=== PATIENT | male | born 1990 | race Caucasian/White ===

== ENCOUNTER 2023-01-27 10:32 | Outpatient (REF) | payer OTHER, SELFPAY ==
--- NOTE | ~2023-01-27 | XR_ITS ---
EXAMINATION: XR SHOULDER, RIGHT CLINICAL INFORMATION: Pain in the right shoulder COMPARISON: None TECHNIQUE: Three views of the right shoulder. FINDINGS: No fracture or dislocation. The glenohumeral joint is well aligned. The acromioclavicular joint is intact. The visualized lung is clear. The visualized ribs are intact. XR/XR shoulder RT min 2V IMPRESSION: Normal right shoulder.
== END 2023-01-27 10:33 | disposition home or self-care (01) ==
LOC: HO.HMGCX 10:32
PROVIDERS: Visit Provider Physician Assistant
DX: M25.511 Pain in right shoulder (principal)
CPT/HCPCS: 73030

== ENCOUNTER → 2023-03-31 13:55 | Outpatient (BNVA) | payer OTHER, SELFPAY | PROVIDERS: Visit Provider Physician Assistant | DX: M75.101 Unspecified rotator cuff tear or rupture of right shoulder, not specified as traumatic (principal) | CPT/HCPCS: 20610; J1040 ==

== ENCOUNTER → 2023-05-16 09:00 | Outpatient (BNVA) | payer OTHER, SELFPAY | PROVIDERS: Visit Provider Physician Assistant ==

== ENCOUNTER 2023-11-04 08:54 | Outpatient (AMB) | payer OTHER, SELFPAY ==
[2023-11-04 09:51] VITALS: BP 120/80; PULSE 83; TEMP 36.2; O2SAT 97; BMI 31.6
--- NOTE | 2023-11-04 09:51 | MHC.OFFWIV ---
Intake Vital Signs 11/04/23 09:51 Height 5 ft 7 in Weight 202 lb BMI 31.6 BP 120/80 Blood Pressure Location Rt brachial Position Sitting Pulse 83 Pulse Source Pulse Oximeter Temp 97.1 F Temp Source Temporal Artery Scan Pulse Oximetry (%) 97 Oxygen Delivery Method Room Air Intake Visit Reasons: Ep, right shoulder pain Intake Note: pt is here today for rt shoulder pain started 1 year ago Patient Tobacco Use Status: Current everyday Tobacco user Allergies No Known Allergies Allergy (Verified 11/04/23 09:52) Do you need a note to return to daycare/school/sports/work: Yes HPI HPI Comments History of Present Illness Details This is a left-hand dominant 33-year-old male currently serving in the [employer] presenting for re-evaluation of right shoulder pain that he has had over the past 1 year. Patient was seen by Orthopedics in [place] last year and had a cortisone injection in March 2023 which he states was very helpful until it ?wore off? in approximately August 2023. Patient also had normal plain film imaging of his right shoulder and January 2023. Patient denies any overt injury or trauma to his right shoulder 1 year ago. The patient did not complete a course of physical therapy as previously recommended by Orthopedics. Patient is requesting a referral back to Orthopedics for a repeat cortisone injection. Patient has been taking 400 mg of ibuprofen twice daily over the past 6-7 days with minimal relief is discomfort. Patient states that it is a 7/10 throbbing sensation inside his right shoulder that is worse when he tries to lift his right arm. [facility] Social History (Updated 05/16/23 @ 09:02 by Funmilayo Bonilla Oz) Alcohol intake: current Patient Tobacco Use Status: Current everyday Tobacco user Current occupational status: employed Current occupation: left hand dominant Review of Systems Const All systems reviewed & are unremarkable except as noted in HPI and below Musc Reports no additional complaints, Reports limited range of motion (right shoulder) and Denies radiating pain into limb Skin/Breast Reports system reviewed and no additional complaints, except as documented Neuro Reports no additional complaints Physical Exam Vital Signs: Last Vital Signs Temp 97.1 F 11/04/23 09:51 Pulse 83 11/04/23 09:51 BP 120/80 11/04/23 09:51 Pulse Ox 97 11/04/23 09:51 Oxygen Delivery Method Room Air 11/04/23 09:51 BMI result Body Mass Index 31.6 Const General: cooperative, healthy appearing, comfortable and no acute distress; No ill appearing Nutritional Appearance: average body habitus Orientation/consciousness: patient oriented x3 Limitations: no limitations Neck Neck: Yes full ROM Back/Spine/Pelvis Cervical Spine: normal cervical lordosis, cervical ROM normal, No cervical muscular tenderness and No Cervical spine tenderness Skin General skin exam: no rashes or lesions noted Neuro General: patient oriented x3 Motor exam (neuro): Abnormal motor strength present (RUE) Extrem General: Yes normal to inspection Right upper extremity: normal to inspection and Extremity exam: right hand (esthetician spa strength equal bilaterally); ROM limited (limited ROM with shoulder abduction; pain with abduction against resistance) Psych Appearance: grossly normal Mental Status: mental status grossly normal Insight: Good insight present (Psych) Judgement: Good judgement present (Psych) Assessment & Plan Assessment & Plan (1) Tendinopathy of right shoulder: Code(s): M67.911 - Unspecified disorder of synovium and tendon, right shoulder Plan: Naprosyn 500mg BID x 7 -10 days. Orthopedic referral placed. Orders: Referrals Orthopedics Referral M75.101 - Unspecified rotator cuff tear or rupture of right shoulder, not specified as traumatic Medications: New naproxen (Naprosyn) 500 mg PO BID 20 tabs 0RF Coding Level of Care Code Est Pt Level 3 (52282) Diagnoses Tendinopathy of right shoulder M67.911 Time Spent (min) 20
== END 2023-11-04 10:30 | disposition home or self-care (01) ==
PROVIDERS: Visit Provider Physician Assistant
DX: M67.911 Unspecified disorder of synovium and tendon, right shoulder (principal)
CPT/HCPCS: 99213

== ENCOUNTER 2023-11-04 10:44 | Outpatient (AMB) | payer OTHER, SELFPAY ==
--- NOTE | 2023-11-04 10:53 | A.OFFVIS_ITS ---
Intake Intake Visit Reasons: OV- Rt Shoulder INJ 03/31/23 Intake Note: Prabhjot is a 33 year old male who presents today for a repeat injection. His last injection was on 03/31/23 which gave him relief. Allergies No Known Allergies Allergy (Verified 11/04/23 10:54) HPI OV- Rt Shoulder INJ 03/31/23 HPI Details 33-year-old left hand dominant male who presents in the office today for a follow up right shoulder pain. The patient had a cortisone injection in the right shoulder on 03/31/2023, which he states gave him relief. I last saw the patient in the office on 05/16/2023 where he was referred to physical therapy to work on ROM and strengthening. The patient was seen early today, 11/04/2023 [facility] Where he reported he was seen by Orthopedics in [place] last year and had a cortisone injection in March 2023 which he states was very helpful until it ?wore off? in approximately August 2023. The patient did not complete a course of physical therapy as previously recommended by Orthopedics. Patient has been taking 400 mg of ibuprofen twice daily over the past 6-7 days with minimal relief is discomfort. Patient states that it is a 7/10 throbbing sensation inside his right shoulder that is worse when he tries to lift his right arm, per the clinic note. The patient was prescribed Naproxen 500 mg PO BID and referred to orthopedics. Patient is currently serving in the [employer]. [facility] Social History Alcohol intake: current Patient Tobacco Use Status: Current everyday Tobacco user Current occupational status: employed Current occupation: left hand dominant Review of Systems Const All systems reviewed & are unremarkable except as noted in HPI and below Physical Exam Const General: cooperative, healthy appearing and no acute distress Resp Effort & Inspection: normal respiratory effort and able to speak in complete sentences Cardio Rate: regular rate Peripheral pulses: Peripheral pulses 2+ throughout GI Palpation (GI): Soft to palpation Skin Lesions: no lesions Rashes: no rashes Extrem Other: Right shoulder: Full shoulder ROM in all planes. Positive cross-body reach. 4/5 strength with empty can. Negative drop arm. Pain along the impingement arc. No tenderness to palpation at the bicep tendon insertion. NVI. Office Procedures Joint Injection/Drain Joint Injection/Drain Primary Site: right shoulder Prep: site was prepped using aseptic technique, ethochloride spray was applied and injection warnings given Injected: 80 mg of, DepoMedrol and with 8 mL of (2% plain lido ) Approach Used: posterolateral Procedure: The patient tolerated the procedure well, but had some pain with the injection and there was some relief with the local anesthesia Coding 06128 - Large joint Procedure code (CPT) selection complete Assessment & Plan Assessment & Plan (1) Painful arc syndrome of right shoulder: Code(s): M75.101 - Unspecified rotator cuff tear or rupture of right shoulder, not specified as traumatic Plan Mr. Payan is a 33-year-old left hand dominant male who presents in the office today for a follow up right shoulder pain. The patient had a cortisone injection in the right shoulder on 03/31/2023, which he states gave him relief. I last saw the patient in the office on 05/16/2023 where he was referred to physical therapy to work on ROM and strengthening. The patient was seen early today, 11/04/2023 at [facility]. Where he reported he was seen by Orthopedics in [place] last year and had a cortisone injection in March 2023 which he states was very helpful until it ?wore off? in approximately August 2023. The patient did not complete a course of physical therapy as previously recommended by Orthopedics. Patient has been taking 400 mg of ibuprofen twice daily over the past 6-7 days with minimal relief is discomfort. Patient states that it is a 7/10 throbbing sensation inside his right shoulder that is worse when he tries to lift his right arm, per the clinic note. The patient was prescribed Naproxen 500 mg PO BID and referred to orthopedics. Patient is currently serving in the [employer]. The patient was offered a cortisone injection in the right shoulder with 80 mg of DepoMedrol. The patient was explained the risk, benefits, and alternatives to receiving this injection. After receiving consent for the injection, the patient had the procedure done while in office today. The patient tolerated the procedure well with no complications. Follow up will be PRN, or sooner if needed. Patient Instructions: Scribed for Irasema Buitrago PA-C by martha Dejesus scribe, on 10/30/2023 at 11:01 am, EST. Coding Level of Care Code Est Pt Level 3 (59840) Diagnoses Painful arc syndrome of right shoulder M75.101 CPT Codes Coding - 37723 Large joint: 68591 - Large joint ([id number])
== END 2023-11-04 10:54 | disposition home or self-care (01) ==
PROVIDERS: Visit Provider Physician Assistant
DX: M75.101 Unspecified rotator cuff tear or rupture of right shoulder, not specified as traumatic (principal)
CPT/HCPCS: 20610

== ENCOUNTER → 2023-11-04 10:44 | Outpatient (BNVA) | payer OTHER, SELFPAY | PROVIDERS: Visit Provider Physician Assistant | DX: M75.101 Unspecified rotator cuff tear or rupture of right shoulder, not specified as traumatic (principal) | CPT/HCPCS: 20610; J1040 ==

== ENCOUNTER 2024-01-12 09:11 | Outpatient (AMB) | payer OTHER, SELFPAY ==
--- NOTE | 2024-01-12 09:43 | MHC.OFFWIV ---
Intake Vital Signs 01/12/24 09:46 Weight 88.904 kg BP 126/90 H Blood Pressure Location Lt brachial Position Sitting Pulse 88 Pulse Source Pulse Oximeter Pulse Oximetry (%) 97 Oxygen Delivery Method Room Air Intake Visit Reasons: EP fell off ladder home knocked out Intake Note: Patient here because he fell off a ladder yesterday around 10pm. He states when he went on the ladderwhen he hit himself on the top of the head with a pipe and lost balance and fell backwards onto his back and hit back od head. he has a small laceration on the back of head. Patient states he woke up with a bad headache. denies any dizziness. Patient Tobacco Use Status: Current everyday Tobacco user Allergies No Known Allergies Allergy (Verified 01/12/24 09:46) Do you need a note to return to daycare/school/sports/work: Yes HPI HPI Comments History of Present Illness Details 0974 33 year old male present s/p fall off 5 ft ladder yesterday night w/ + LOC coming in w/ hematoma to back of head and severe headache not improving with Tylenol. Patient tells me that his girlfriend witnessed him unconscious for about 30 seconds yesterday. Not on blood thinners not drinking. Taking Tylenol with little to no relief. No other injuries sustained from fall. Denies chest pain, shortness of breath, nausea, vomiting, abdominal pain, back pain, vision changes, dizziness. GCS 15 NIH stroke scale 0 There is a hematoma noted to the occiput region with overlying abrasion. Plan will have him go to the ED for head scan due to positive head strike with loss of consciousness and worsening headache. [facility] Social History Alcohol intake: current Patient Tobacco Use Status: Current everyday Tobacco user Current occupational status: employed Current occupation: left hand dominant Review of Systems Const All systems reviewed & are unremarkable except as noted in HPI and below Physical Exam Vital Signs: Last Vital Signs Pulse 88 01/12/24 09:46 BP 126/90 H 01/12/24 09:46 Pulse Ox 97 01/12/24 09:46 Oxygen Delivery Method Room Air 01/12/24 09:46 vss Appearance: Alert.? Oriented X3.? No acute distress.? Head: Normocephalic, There is a hematoma noted to the occiput region with overlying abrasion., no step-offs or deformities Eyes: Pupils equal, round and reactive to light.? ENT: Pharynx normal.? Neck: Normal inspection.? Neck supple.? CVS: Normal heart rate and rhythm.? Pulses normal.? Respiratory: No respiratory distress.? Breath sounds normal.? Skin: Skin warm and dry.? Normal skin color.? Normal skin turgor.? Extremities: No lower extremity edema.? No calf ttp. 5/5 strength to bilateral upper and lower extremities Neuro: Oriented X 3.? No motor deficit.? No sensory deficit. CN 2-12 intact . Ambulating with steady gait normal coordination Assessment & Plan Assessment & Plan (1) Concussion: Code(s): S06.0XAA - Concussion with loss of consciousness status unknown, initial encounter (2) Fall: Code(s): W19.XXXA - Unspecified fall, initial encounter Plan Take your medications as prescribed. If you were prescribed antibiotics today, it is important that you take your medication to their entirety, do not skip any doses, do not finish them early. Follow-up with your primary care provider this week. Return to the emergency department with new or worsening symptoms. Such as fevers, chills, chest pain, shortness of breath, nausea, vomiting, dizziness, headache, vision changes, lethargy In case of emergency call 911 Coding Level of Care Code Est Pt Level 3 (04219) Diagnoses Concussion S06.0XAA Fall W19.XXXA
[2024-01-12 09:46] VITALS: BP 126/90; PULSE 88; O2SAT 97
== END 2024-01-12 15:26 | disposition home or self-care (01) ==
PROVIDERS: Visit Provider Physician Assistant
DX: S06.0XAA Concussion with loss of consciousness status unknown, initial encounter (principal); W19.XXXA Unspecified fall, initial encounter
CPT/HCPCS: 99213

== ENCOUNTER 2024-01-12 10:14 | Emergency (ER) | payer OTHER, SELFPAY ==
--- NOTE | ~2024-01-12 | CT_ITS ---
CT brain, CT cervical spine and CT facial bones. CLINICAL INDICATION: Fall with posterior head strike. COMPARISON: None. TECHNIQUE: 5 mm thin axial and reformatted 2 mm thin sagittal and coronal images of brain were obtained. Subsequently axial 3 mm thin and reformatted 1.5 mm thin coronal and sagittal images of facial bones were obtained. Lastly axial 3 mm thin and reformatted 2 mm thin sagittal and coronal images of cervical spine were obtained. DLP 1548. This CT examination was performed using dose optimization technique as appropriate, variously including the following: Automated exposure control Adjustment of MA and/or KV according to patient size(this includes techniques or standardized protocols for targeted exams where dose is matched to indication/reason for exam; extremities or head. Use of iterative reconstruction techniques. FINDINGS: Brain: There is no acute intra-axial, extra-axial bleed, masses or midline shift. There is no acute infarction evolution. There is no edema. The moscoso to white matter difference is maintained normal. The lateral ventricles are symmetrical in size and configuration without enlargement. No abnormality seen the posterior fossa. Bone windows reveal no calvarial abnormality. There is no scalp soft tissue abnormality. Bilateral paranasal sinuses and mastoid air cells are well-aerated. Cervical spine: There is mild straightening of cervical lordosis. The vertebral heights and alignment is normal. There is no visible acute fracture, dislocation or subluxation seen. The prevertebral and paravertebral soft tissues are normal. The airway is widely patent. Bilateral TM joints are symmetrical and normal. The thyroid lobes are symmetrical and normal. The lung apices are clear. Facial bones: There is normal symmetry of bilateral paranasal sinuses and mastoid air cells. There is mild deviation of anterior nasal septum to the left posterior nasal septum to the right. The turbinates are symmetrical. The bony sinus ramos are intact. The lamina papyracea and cribriform plate is normal. The bony orbits, optic globe and optic nerves are symmetrical. No periorbital soft tissue swelling. No maxillofacial and nasal soft tissue swelling. No fracture involving the nasal bone. Bilateral TM joints are symmetrical. Visualized mandible is intact. CT/CT cervical spine wo IV con IMPRESSION: 1. No acute intracranial process seen. 2. There is no acute fracture, dislocation or subluxation in cervical spine. 3. There is no maxillofacial, nasal or mandibular fracture. 4. Mild deviation of nasal septum as described above.
--- NOTE | 2024-01-12 11:03 | ED.HEATRA ---
HPI - Head Injury General Chief complaint: Head Injury Stated complaint: head inj Time Seen by Provider: 01/12/24 14:03 Source: patient Mode of arrival: ambulatory Limitations: no limitations History of Present Illness HPI Narrative: 33 year old male with no significant pmhx presents to the ED today with headache s/p fall off ladder yesterday around 2200. Admits to stepping up the 1st step of the ladder and losing his balance, causing him to fall back and hit his head on a pipe. He then fell onto the concrete floors and lost consciousness. His girlfriend upstairs heard the fall and immediately came down. He regained consciousness 30 seconds later. No thinners. Today he endorses headache and bump to the back of his head. Denies vision changes, dizziness, neck pr back pain, N/V, confusion. Related Data Allergies Allergy/AdvReac Type Severity Reaction Status Date / Time No Known Allergies Allergy Verified 01/12/24 09:46 Review of Systems Review of Systems: Constitutional: No fever, chills, fatigue, night sweats, weight changes ENT/Mouth: No ear pain, hearing loss, nasal congestion, sinus pain, rhinorrhea, sore throat Eyes: No eye pain, swelling, redness, vision changes, discharge Cardio: No chest pain, palpitations, GAMEZ, orthopnea, peripheral edema Pulm: No SOB, cough, sputum, wheezing, dyspnea, hemoptysis GI: No nausea, vomiting, hematemesis, abdominal pain, diarrhea, constipation, hematochezia, melena : No irregular bleeding, dysuria, frequency, urgency, hesitancy, hematuria, flank pain, urinary flow changes, urinary incontinence or retention MSK: No back pain, No neck pain, joint pain, myalgias Skin: No lesions, rashes Neuro: No weakness, numbness, paresthesias, LOC, dizziness, +headache All other systems reviewed and are negative. [facility] Past Medical History Attestation statement: The following information was validated with the patient. Source: old records reviewed and nursing notes reviewed Social History Social History Alcohol intake: current Patient Tobacco Use Status: Current everyday Tobacco user Advance Directives: No Advance Directives Information Provided: No Current occupational status: employed Current occupation: left hand dominant Physical Exam Vital Signs: Vital Signs: Last Vital Signs Temp 98 F 01/12/24 11:04 Pulse 77 01/12/24 11:04 Resp 16 01/12/24 11:04 BP 140/88 H 01/12/24 11:04 Pulse Ox 98 01/12/24 11:04 O2 Del Method Room Air 01/12/24 11:04 BMI result Body Mass Index 28.9 Hypertensive, otherwise wnl Const: General: cooperative, healthy appearing, comfortable, no acute distress, alert, awake and Physically active Orientation/consciousness: patient oriented x3 HEENT: Other: + small hematoma to posterior scalp Head: Yes normal to inspection, Yes No palpable skull fracture present, Yes normocephalic, Yes atraumatic, No Scott's sign, No raccoon eyes and No periorbital ecchymosis General nose exam: Normal septum present Face and sinus: No crepitus and No maxillary instability Teeth and gingiva: dentition normal Eyes: General: appearance normal, both eyes and all related structures Pupils: Equal, round and reactive pupils present EOM: EOMs intact bilaterally Neck: Other: + no cervical midline spinous tenderness or step-off deformity. Neck: Yes normal visual inspection and Yes full ROM Chest: Chest palpation & inspection: normal inspection of the chest and normal palpation of entire chest wall Resp: Effort & Inspection: normal respiratory effort, able to speak in complete sentences and symmetric chest movement Auscultation: clear to auscultation bilaterally Cardio: Rate: regular rate Rhythm: regular rhythm GI: Inspection: Yes normal to inspection and No abdominal wall ecchymosis Palpation (GI): Soft to palpation and nontender Back/Spine/Pelvis: Other: No midline spinous tenderness or step off deformity. No paraspinal muscle tenderness. Skin: General skin exam: no rashes or lesions noted Neuro: Other: Strength 5/5 intact throughout.? No saddle anesthesia.? Sensation intact to light touch.? Neurovascular intact distally.? General: patient oriented x3 and gait normal Cranial nerves: Yes Equal, round and reactive pupils present Gait exam (Neuro): Normal gait present Extrem: General: Yes normal to inspection Course Course Course Narrative: RME:?33 yo male here with headache s/p fall off ladder at home yesterday at 2200. states he was one step off the ground when he lost his balance and hit the back of his head on a pipe. fell to the ground onto concrete floor. +loc x1 minute. GF found him down stairs a few seconds later. no thinners. no palpable sklull fracture. +posterior scalp hematoma. exam nonfocal. perrla. left paraspinal muscle tenderness. no midline spinous tenderness imaging ordered Full HPI, ROS and PE to be performed by the primary ED provider. Reevaluation(s) Reevaluation #1: 1420-- CT scans unremarkable. There is no skull fracture, intracranial bleed or cervical fracture. I discussed work up results with the patient. Patient has remained stable throughout ED visit today. Discussed worrisome signs and symptoms and when to return to the ED. All questions answered at this time. Patient is agreeable with disposition and stable for discharge. Medical Decision Making Medical Decision Making MDM Narrative: 33 year old male with no significant pmhx presents to the ED today with headache s/p fall off ladder yesterday around 2200. Vitals are stable. Patient is nontoxic appearing and in NAD. Please refer to physical exam section for findings. Differential includes headache, migraine, concussion, scalp hematoma, ICH, skull fracture Plan for xrays and re-evaluation. Differential Diagnosis Differential Diagnoses: The differential diagnosis associated with the presentation includes as above Admission/Observation Not indicated. Independent Interpretation I performed an independent interpretation of an: Plain X-Ray Interpretation: I have personally reviewed CTs and agree with radiologist's interpretation. Radiology Impression Discussion of test interpretation with radiology: I have reviewed the radiologist's reading. Radiologist Impression: CT facial bones/ head/ brain/ cervical spine wo IV con IMPRESSION: 1. No acute intracranial process seen. 2. There is no acute fracture, dislocation or subluxation in cervical spine. 3. There is no maxillofacial, nasal or mandibular fracture. 4. Mild deviation of nasal septum as described above. External Record Review External record reviewed: Inpatient record Prescription Management I considered prescription management with: Pain Medication and Other (Muscle relaxer) Discharge Plan Discharge Clinical Impression: Concussion, Hematoma Patient Disposition: Home, Self-Care Instructions: Concussion (ED) Additional Instructions: The CT scan of your head/ brain does not demonstrate acute bleed or skull fracture. The CT scan of your neck does not demonstrate fracture. The CT scan of your facial bones does not demonstrate fracture. You likely have a concussion. The recommendation is cognitive rest. Make sure you are getting lots of rest. Decrease screen time. You may take Tylenol or ibuprofen as needed for pain. For jaw pain, you may use ice several times per day for 20 minutes at a time, Please return to the ED for new or worsening symptoms as discussed such as increased confusion, severe headache, vomiting or neck stiffness, vision changes, excessive sleeping/fatigue etc. In the case of emergency call 911. Stand Alone Forms: Work/School Release Interventions: ED Discharge Assessment Last Done: 01/12/24 15:43 Discharge Date/Time: 01/12/24 14:30
[2024-01-12 11:04] VITALS: BP 140/88; PULSE 77; RESP 16; TEMP 36.6; O2SAT 98; BMI 28.9
== END 2024-01-12 14:30 | disposition home or self-care (01) ==
LOC: HO.ED 14:24
PROVIDERS: Emergency Provider Emergency Medicine
DX: S06.0X1A Concussion with loss of consciousness of 30 minutes or less, initial encounter (principal); S00.03XA Contusion of scalp, initial encounter; W17.89XA Other fall from one level to another, initial encounter; Y93.9 Activity, unspecified; Y92.009 Unspecified place in unspecified non-institutional (private) residence as the place of occurrence of the external cause; Y99.9 Unspecified external cause status
CPT/HCPCS: 70450; 70486; 72125; 99282; 99284